=== PATIENT | male | born 1965 | race Caucasian/White ===

== ENCOUNTER 2020-04-16 12:58 | Emergency (ER) | payer OTHER, BC ==
[2020-04-16] MEDS ORDERED: Sodium Chloride 0.9% 1,000 ML ONE (13:52)
--- NOTE | 2020-04-16 15:05 | EDM.PDOC ---
ED HPI GENERAL MEDICAL PROBLEM - General Chief Complaint: Chemical Exposure Stated Complaint: CHEMICAL EXPOSURE Time Seen by Provider: 04/16/20 13:26 Source of Information: Reports: Patient, RN Notes Reviewed - History of Present Illness INITIAL COMMENTS - FREE TEXT/NARRATIVE: Got some surfactant solution splashed unto his face at servicing a well. There was some kind of a backflow problem due to a valve not being shut according to nl procedure. This happened about 4 hrs ago. He was able to wash his face and eyes right away with a lot of water. He does have mild irritation feeling remaining but there has been no severe pain or change in vision from baseline. 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 ;saline solution Eye Pain Score (Numeric/FACES): 3 - Related Data Allergies Allergy/AdvReac Type Severity Reaction Status Date / Time No Known Allergies Allergy Verified 04/16/20 13:36 Home Meds: Home Meds lisinopriL [Lisinopril] 10 mg PO DAILY 04/16/20 [History] Past Medical History Cardiovascular History: Reports: Hypertension Respiratory History: Reports: Other (See Below) Other Respiratory History: c-pap Musculoskeletal History: Reports: Other (See Below) Other Musculoskeletal History: left leg with metal plate; right hand crushed injury with the surgery index finger Social & Family History - Tobacco Use Smoking Status *Q: Former Smoker Used Tobacco, but Quit: Yes Month/Year Tobacco Last Used: 28 yrs - Caffeine Use Caffeine Use: Reports: Coffee, Soda - Recreational Drug Use Recreational Drug Use: No ED ROS GENERAL - Review of Systems Review Of Systems: See Below Constitutional: Reports: No Symptoms HEENT: Reports: Eye Pain (mild irritation feeling) Respiratory: Denies: Shortness of Breath, Wheezing, Cough Cardiovascular: Denies: Chest Pain GI/Abdominal: Denies: Abdominal Pain, Nausea, Vomiting Musculoskeletal: Reports: No Symptoms Skin: Denies: Pruritis, Rash Neurological: Reports: No Symptoms ED EXAM, BURN/SMOKE INHALATION - Physical Exam Exam: See Below General Appearance: Alert, No Apparent Distress Eye Exam: Bilateral Eye: Conjunctival Injection (mild), PERRL Mouth/Throat: No Symptoms Reported. No: Pharyngeal Erythema Head: No Symptoms Neck: Supple Respiratory: No Respiratory Distress, Lungs Clear Extremities: Normal Inspection, Normal Range of Motion Neurological: Alert, Oriented, No Motor/Sensory Deficits Skin Exam: Warm, Dry, Normal Color, No Rash Course - Vital Signs Last Recorded V/S: Last Vital Signs Temp 97.9 F 04/16/20 14:50 Pulse 84 04/16/20 14:50 Resp 16 04/16/20 14:50 BP 132/70 04/16/20 14:50 Pulse Ox 97 04/16/20 14:50 - Orders/Labs/Meds Meds: Medications Discontinued Medications Generic Name Dose Route Start Last Admin Trade Name Leticia PRN Reason Stop Dose Admin Sodium Chloride Confirm 04/16/20 13:52 Normal Saline Administered 04/16/20 13:53 Dose 1,000 mls @ as directed .ROUTE .STK-MED ONE - Re-Assessments/Exams Free Text/Narrative Re-Assessment/Exam: 04/21/20 19:44 each eye further irrigated with 500 ml NS. Ph nl. Eyes feel better. Discharge instr. as documented. Departure - Departure Time of Disposition: 15:03 Disposition: Home, Self-Care 01 Condition: Fair Clinical Impression: Conjunctivitis Qualifiers: Conjunctivitis type: unspecified Laterality: bilateral Qualified Code(s): H10.9 - Unspecified conjunctivitis - Discharge Information Instructions: Chemical Conjunctivitis, Adult Referrals: Jimmy Moon Jr, MD [Primary Care Provider] - Forms: ED Department Discharge Additional Instructions: Your eyes will likely feel mildly irritated for 12 to 24 hours. See your eye doctor if not getting back to normal within 1 to 2 days as expected. Tylenol or ibuprofen if needed. Return to ED as needed. Sepsis Event Note (ED) - Evaluation Sepsis Screening Result: No Definite Risk
== END 2020-04-16 15:13 | disposition home or self-care (01) ==
LOC: JD.ED 12:58
DX: H10.9 Unspecified conjunctivitis (principal); I10 Essential (primary) hypertension; Z79.899 Other long term (current) drug therapy; Z87.891 Personal history of nicotine dependence
CPT/HCPCS: 99283